=== PATIENT | female | born 1990 | race Asian ===

== ENCOUNTER 2022-11-07 13:14 | Emergency (ER) | payer MEDICAID ==
[~2022-11-07] VITALS: Ht 170.2 cm; Wt 100.0 kg
[2022-11-07] MEDS ORDERED: IBUPROFEN 600MG TABLET PO ONE (17:45)
[2022-11-07 18:34] VITALS: BP 141/78
== END 2022-11-07 19:07 | disposition home or self-care (01) ==
LOC: ER 13:14
DX: S50.12XA Contusion of left forearm, initial encounter (principal); V09.9XXA Pedestrian injured in unspecified transport accident, initial encounter; Y93.89 Activity, other specified; Y92.89 Other specified places as the place of occurrence of the external cause; Y99.8 Other external cause status
CPT/HCPCS: 73080; 73090; 99284